=== PATIENT | male | born 2000 | race Caucasian/White ===

== ENCOUNTER 2019-02-15 15:13 | Emergency (ER) | payer OTHER ==
[~2019-02-15] VITALS: Ht 172.7 cm; Wt 65.8 kg
[2019-02-15 15:28] VITALS: BP 124/82
== END 2019-02-15 16:54 | disposition home or self-care (01) ==
LOC: ER 15:17
DX: S01.01XA Laceration without foreign body of scalp, initial encounter (principal); W22.8XXA Striking against or struck by other objects, initial encounter; Y93.89 Activity, other specified; Y99.8 Other external cause status; Y92.89 Other specified places as the place of occurrence of the external cause
CPT/HCPCS: 12002